=== PATIENT | female | born 1965 | race Caucasian/White ===

== ENCOUNTER 2024-09-13 15:05 | Emergency (ER) | payer OTHER, SELFPAY ==
[2024-09-13 15:06] VITALS: BP 158/90
[2024-09-13] MEDS: MOTRIN 400 MG PO (16:40)
[2024-09-13] MEDS: ULTRAM 50 MG PO (16:40)
--- NOTE | 2024-09-13 16:53 | ED.GENMED ---
History of Present Illness
General
Chief Complaint: Fall
Source: patient
Exam Limitations: none
Time Seen by Provider: 09/13/24 16:18
Nursing documentation reviewed up to this point in time: agreed with
History of Present Illness
History of Present Illness:
Patient presents to ED secondary to persistent right-sided rib pain, after trip and fall outside, on approximately 2 hours prior to arrival. Patient reports tripping over and falling onto her right side. At that time, patient recalls having her
right elbow tucked into her side, when she fell. Patient immediately felt significant pain with nausea after the fall. Denies head injury. Denies any other injuries from the fall. Patient reports difficulty breathing secondary to pain. Denies
loss of sensation or weakness of the legs. Denies back pain. Denies abdominal pain. Denies chest pain. Denies neck pain. Denies headache. Patient does take aspirin 81 mg twice daily, since last year, after foot surgery. Patient does not have
any known cardiac disease.
Review of Systems
Review of Systems
Allergies reviewed?: Yes
All Other Systems: ROS reviewed and negative except as documented in HPI and ROS
Constitutional: Reports no symptoms; Denies fever
Respiratory: Reports trouble breathing; Denies cough
Cardiac: Reports no symptoms; Denies chest pain
ABD/GI: Reports nausea; Denies abdominal pain or vomiting
: Reports no symptoms
Musculoskeletal: Reports no symptoms; Denies neck pain or back pain
Skin: Reports no symptoms
Neurological: Reports no symptoms
Phy Exam
Physical Exam
Physical Exam:
Physical Exam
General: moderate painful distress, not acutely ill. afebrile
Head: nc/at. eomi
Neck: supple. no midline tenderness. normal range of motion.
Heart: s1/s2 regular rate and rhythm
Lungs: no acute respiratory distress. mild tenderness to palpation over rib #8-10, along midaxillary line, without ecchymosis/swelling/erythema
Abdomen: normal bowel sounds. not tender.
Neuro: alert and oriented x 3. no focal neurological deficits. normal speech
Skin: no rash
Psychiatric: well kept. interactive and cooperative
Extremities: no edema. no calf tenderness.
Course
Orders/Labs/Results
Orders:
Orders
09/13/24 16:25
Ibuprofen [Motrin] 400 mg PO NOW STA
Tramadol HCl [Ultram] 50 mg PO NOW STA
09/13/24 17:16
CR Ribs-right 3 Vw W/pa Chest* Urgent
Comment:
Reason For Exam: trauma with pain along rib #7-10
09/13/24 18:57
Incentive Spirometry [Rx Incentive Spirometry] [RESP] Urgent
Frequency: q1h while awake
Vital Signs
Initial and Last Documented VS:
Initial Vital Signs
Temp Pulse Resp BP Pulse Ox
97.6 F 82 20 158/90 98
09/13/24 15:06 09/13/24 15:06 09/13/24 15:06 09/13/24 15:06 09/13/24 15:06
Last Documented Vital Signs
Temp Pulse Resp BP Pulse Ox
97.6 F 82 20 158/90 98
09/13/24 15:06 09/13/24 15:06 09/13/24 15:06 09/13/24 15:06 09/13/24 15:06
MDM/Problems Addressed
MDM/Problems Addressed:
Chest x-ray report reviewed and discussed with patient and her spouse. As patient lives in [place], patient will be given a copy of x-ray on a disk, to be reviewed with her primary care physician, during follow-up evaluation. Patient otherwise
is afebrile, hemodynamically stable, and without acute respiratory distress, at time of discharge. Pt given incentive spirometer at discharge.
*Critical Care Note
Total Time (30-74mins, 75-104mins- exclusive of procedures): Not Applicable
ED Attending Note
-
Portions of this chart may have been created with voice recognition software.� Occasional wrong word or��sound alike� substitutions may have occurred due to the inherent limitations of voice recognition software.
Discharge Plan
Departure
Patient Disposition: Home (Routine Discharge)
Date of Disposition: 09/13/24
Time of Disposition: 18:54
Patient with high blood pressure during this ER visit?: Yes
Condition: Fair
Discharge Problem:
Fracture of rib
Instructions: How to use an incentive spirometer, Rib fracture or bruised rib - ED discharge instructions
Prescriptions:
New
tramadol 50 mg tablet
50 mg PO Q8H PRN (Reason: Pain) Qty: 14 0RF
Referrals:
UNKNOWN - PT DOES,NOT KNOW [Family Provider] -
Activity Restrictions/Additional Instructions:
As discussed, please follow-up with your primary care physician for reevaluation. Your prescription has been sent electronically to [facility] pharmacy in [place], [place].
Interventions
Interventions:
*Risk Screen - Suicide Last Done: 09/13/24 15:06
*General Assessment Last Done: 09/13/24 15:06
*Neglect/Abuse Screening Last Done: 09/13/24 18:00
*ED- Fall Risk Assessment Last Done: 09/13/24 19:24
*ED COVID-19 Vaccine History Last Done: 09/13/24 18:00
*Nursing Disposition Last Done: 09/13/24 19:24
ED-Musculoskeletal Assessment Last Done: 09/13/24 18:00
ED- Neurological Assessment Last Done: 09/13/24 18:00
ED-Skin Assessment Last Done: 09/13/24 18:00
Discharge Date and Time
Discharge Date/Time: 09/13/24 19:26
Print Language: DANISH
== END 2024-09-13 19:26 | disposition home or self-care (01) ==
LOC: EMR 15:05
PROVIDERS: EMERGENCY PHYSICIAN Emergency Medicine
DX: S22.31XA Fracture of one rib, right side, initial encounter for closed fracture (principal); W01.0XXA Fall on same level from slipping, tripping and stumbling without subsequent striking against object, initial encounter; Z79.82 Long term (current) use of aspirin
CPT/HCPCS: 99283; 71101